=== PATIENT | male | born 1955 | race Caucasian/White ===

== ENCOUNTER 2024-01-07 11:57 | Observation (INO) ==
[2024-01-07] MEDS: Lactated Ringers 1000 ml BAG 1,000 ML IV ONE (13:43)
[2024-01-07 13:56] LABS: ABS Basophils 0.1 10^3/uL (0.0-0.1); ABS Eosinophils 0.2 10^3/uL (0.0-0.5); ABS Lymphocytes 1.4 10^3/uL (1.0-4.8); ABS Monocytes 0.6 10^3/uL (0.0-1.1); ABS Neutrophils 3.5 10^3/uL (1.5-7.6); Eosinophil % 3.6 %; Hematocrit 38.3 % (38-53); Hemoglobin 12.8 g/dL (13.2-16.3); Lymphocyte % 24.8 %; Mean Corpuscular Hemoglobin 33.7 pg (27-33); Mean Corpuscular Hgb Conc 33.3 g/dL (31-36); Mean Corpuscular Volume 101.2 fL (80-97); Mean Platelet Volume 7.2 fL (7.5-11.2); Platelet Count 229 10^3/uL (150-450); Red Blood Count 3.78 10^6/uL (4.06-5.63); White Blood Count 5.7 10^3/uL (3.6-10.2)
[2024-01-07 14:04] LABS: INR 0.95 (0.83-1.13)
[2024-01-07 15:06] LABS: Albumin 3.9 g/dL (3.2-5.2); Albumin/Globulin Ratio 1.5 (1-3); C Reactive Protein 11.95 mg/L (<8.01); Calcium 9.2 mg/dL (8.6-10.3); Creatinine, Serum 1.16 mg/dL (0.67-1.17); Globulin 2.6 g/dL (2-4); Potassium 4.3 mmol/L (3.5-5.0); Total Bilirubin 0.3 mg/dL (0.2-1.0); Total Protein 6.5 g/dL (6.4-8.9); eGFR CKD-EPI 68.2 (>60)
[2024-01-07 15:21] LABS: High Sensitivity Troponin 1 Hr 5 pg/mL (<20)
[2024-01-07] MEDS: Iohexol 300 (CONTRAST) 10 ML SDV IV ONE (16:29)
[2024-01-07] MEDS ORDERED: oxyCODONE/Acetamin 10/325(NF) TAB PO PRN (20:09)
[2024-01-08] MEDS: Pantoprazole VIAL 40 MG VIAL IV SCH (01:54)
[2024-01-08] MEDS: oxyCODONE/Acetamin 5/325 mg TAB PO PRN (02:10)
[2024-01-08 06:32] LABS: ABS Eosinophils 0.2 10^3/uL (0.0-0.5); ABS Lymphocytes 1.4 10^3/uL (1.0-4.8); ABS Monocytes 0.5 10^3/uL (0.0-1.1); ABS Neutrophils 2.7 10^3/uL (1.5-7.6); Eosinophil % 4.4 %; Hematocrit 36.1 % (38-53); Hemoglobin 12.2 g/dL (13.2-16.3); Lymphocyte % 28.2 %; Mean Corpuscular Hemoglobin 33.8 pg (27-33); Mean Corpuscular Hgb Conc 33.6 g/dL (31-36); Mean Corpuscular Volume 100.4 fL (80-97); Mean Platelet Volume 6.9 fL (7.5-11.2); Platelet Count 235 10^3/uL (150-450); Red Cell Distribution Width 13.8 % (12-17); White Blood Count 4.9 10^3/uL (3.6-10.2)
[2024-01-08 06:45] LABS: INR 0.98 (0.83-1.13)
[2024-01-08 07:17] LABS: Calcium 9.3 mg/dL (8.6-10.3); Creatinine, Serum 1.09 mg/dL (0.67-1.17); Phosphorus 3.2 mg/dL (2.5-5.0); Potassium 4.1 mmol/L (3.5-5.0); eGFR CKD-EPI 73.5 (>60)
[2024-01-08 08:17] LABS: Ferritin 88.3 ng/mL (24-336)
[2024-01-08 08:21] LABS: Folate 6.4 ng/mL (5.90-24.80)
[2024-01-08] MEDS: Aspirin EC 81 mg TAB.EC (enteric coated) PO SCH (10:03)
[2024-01-08] MEDS ORDERED: Propofol 10 MG/ML 20 ML BTL ONE (12:58)
[2024-01-08] MEDS ORDERED: Lidocaine 2% PF 5 ML VIAL ONE (12:58)
[2024-01-08] MEDS ORDERED: Buffered Lidocaine 1% SYRIN 1 ml INTRADERM ONE (13:18)
[2024-01-08] MEDS ORDERED: fentaNYL 100 mcg/2 ml 50 MCG/ML VIAL IV PRN (13:19)
[2024-01-08] MEDS ORDERED: Naloxone 0.4 mg VIAL 0.4 mg/ml 1 ml VIAL IV PRN ×2 (13:19)
[2024-01-08] MEDS ORDERED: Ondansetron 4 mg VIAL 2 MG/ML 2 ml VIAL IV PRN (13:19)
[2024-01-08] MEDS ORDERED: fentaNYL 100 mcg/2 ml 50 MCG/ML VIAL ONE (13:55)
[2024-01-08] MEDS ORDERED: Midazolam 2 mg/2 ml VIAL 1 mg/ml 2 ml VIAL (2 mg) ONE (13:55)
[2024-01-08] MEDS ORDERED: Lactated Ringers 1000 ml BAG 1,000 ML IV SCH (14:00)
[2024-01-08] MEDS: Lactated Ringers 1000 ml BAG 1,000 ML IV SCH (16:28)
[2024-01-08 16:40] VITALS: BP 137/88
== END 2024-01-08 18:50 | disposition home or self-care (01) ==
LOC: ED 11:57 → EDHOLD 18:53 → INTOOBSV 18:53 → SUATTDRO 18:53 → MED 01-08 01:02
PROVIDERS: ADMIT Internal Medicine; ATTEND Internal Medicine
PROC: O.GIEGD (2024-01-08 14:10)